=== PATIENT | male | born 1985 | race Caucasian/White ===

== ENCOUNTER 2022-12-02 22:25 | Emergency (ER) | payer MEDICAID ==
[~2022-12-02] VITALS: Ht 200.7 cm; Wt 117.9 kg
[2022-12-02 22:31] VITALS: BP 130/75
--- NOTE | 2022-12-02 22:39 | NUR ---
Caregiver at the bedside.
--- NOTE | 2022-12-02 22:39 | NUR ---
PT TO BED #6
--- NOTE | 2022-12-03 01:54 | NUR ---
WATER PROVIDED TO PT FOR [place]
[2022-12-03 02:55] VITALS: BP 120/64
--- NOTE | 2022-12-03 02:57 | NUR ---
Patient discharged with v/s stable. Written and verbal after care instructions given and explained. Patient verbalized understanding. Ambulatory with by caregiver. All questions addressed prior to discharge. Advised to follow up with PMD. pt went back to his facility with her caregiver
== END 2022-12-03 02:57 | disposition home or self-care (01) ==
LOC: MED 22:25
DX: T18.8XXA Foreign body in other parts of alimentary tract, initial encounter (principal); J45.909 Unspecified asthma, uncomplicated; I10 Essential (primary) hypertension; F20.9 Schizophrenia, unspecified; F31.9 Bipolar disorder, unspecified; Z91.048 Other nonmedicinal substance allergy status; X58.XXXA Exposure to other specified factors, initial encounter; Y92.89 Other specified places as the place of occurrence of the external cause; Y93.89 Activity, other specified; Y99.8 Other external cause status
CPT/HCPCS: 74018; 99283

== ENCOUNTER 2023-06-11 18:14 | Emergency (ER) | payer MEDICAID ==
[~2023-06-11] VITALS: Ht 182.9 cm; Wt 99.8 kg
[2023-06-11 18:38] VITALS: BP 151/96; PULSE 76; RESP 18; TEMP 97; O2SAT 98
[2023-06-11 20:15] LABS: APPEARANCE,URINE CLEAR (CLEAR); BILIRUBIN,URINE NEGATIVE (NEGATIVE); BLOOD, URINE NEGATIVE (NEGATIVE); COLOR,URINE YELLOW (YELLOW); LEUKOCYTE ESTERASE ,URINE TRACE (NEGATIVE); NITRITE, URINE NEGATIVE (NEGATIVE); PH,URINE 6.5 (5.0-9.0); PROTEIN,URINE NEGATIVE (NEGATIVE); UGLUCOSE NEGATIVE (NEGATIVE); UROBILINOGEN,URINE 0.2 EU/dL (0.2 - 1)
[2023-06-11 20:17] LABS: BASOPHILS # (AUTO) 0.1 K/uL (0.00-0.22); BASOPHILS % (AUTO) 0.7 % (0.0-2.0); EOSINOPHILS # (AUTO) 0.3 K/uL (0-0.4); EOSINOPHILS % (AUTO) 4.8 % (0.0-4.0); HEMATOCRIT 34.1 % (36-52); HEMOGLOBIN 11.7 g/dL (12.0-18.0); LYMPHOCYTES # (AUTO) 2.7 K/uL (2.0-11.5); LYMPHOCYTES % (AUTO) 36.9 % (20.5-51.1); MEAN CORPUSCULAR HEMOGLOBIN 30 pg (27-31); MEAN CORPUSCULAR HGB CONC 34 g/dL (33-37); MEAN CORPUSCULAR VOLUME 87.1 fL (80-94); MONOCYTES # (AUTO) 0.8 K/uL (0.8-1.0); MONOCYTES % (AUTO) 10.8 % (1.7-9.3); NEUTROPHILS # (AUTO) 3.4 K/uL (1.8-7.7); NEUTROPHILS % (AUTO) 46.8 % (42.2-75.2); PLATELET COUNT (AUTO) 240 K/uL (140-450); RED BLOOD CELL COUNT(AUTO) 3.91 MIL/uL (4.20-6.10); RED CELL DISTRIBUTION WIDTH 12.7 % (11.6-13.7); WHITE BLOOD COUNT (AUTO) 7.3 K/uL (4.8-10.8)
[2023-06-11 20:21] LABS: RBC,URINE 0 /HPF (0-5); WBC,URINE 0-5 /HPF (0-5)
[2023-06-11 20:22] LABS: BACTERIA,URINE 0-2 /HPF (None Seen); MUCUS,URINE None Seen /LPF (None Seen); SQUAMOUS EPITHELIAL CELL,UR 0-3 (FEW) /LPF (0-3 (FEW))
[2023-06-11 20:30] LABS: ANION GAP 9.3 (8-16); CALCIUM 8.5 mg/dL (8.5-10.1); CARBON DIOXIDE 27.7 mmol/L (21-32); CREATININE 1.3 mg/dL (0.6-1.3)
[2023-06-11 20:41] LABS: LIPASE 78 U/L (16-77)
[2023-06-11 20:41] LABS: FLU A ANTIGEN negative (NEGATIVE); FLU B ANTIGEN NEGATIVE (NEGATIVE)
[2023-06-11] MEDS ORDERED: DEXT118S25 PO (21:53)
[2023-06-11] MEDS ORDERED: CIPR500T4 PO (21:54)
[2023-06-11] MEDS ORDERED: CETI10SG1 PO (21:54)
[2023-06-11] MEDS ORDERED: MECL-303 PO (21:54)
[2023-06-11 22:08] VITALS: BP 151/96; PULSE 76; RESP 18; TEMP 97; O2SAT 98
[2023-06-11] MEDS ORDERED: MECLIZINE 25 MG TAB PO ONE (22:10)
== END 2023-06-11 22:08 | disposition home or self-care (01) ==
LOC: MED 18:14
DX: J06.9 Acute upper respiratory infection, unspecified (principal); Z20.822 Contact with and (suspected) exposure to COVID-19; R53.83 Other fatigue; D64.9 Anemia, unspecified; I11.9 Hypertensive heart disease without heart failure; J45.909 Unspecified asthma, uncomplicated; Z79.899 Other long term (current) drug therapy
CPT/HCPCS: 36415; 71045; 80048; 81001; 83690; 84484; 85025; 87426; 87804; 99284; Q0092